=== PATIENT | female | born 1990 | race Caucasian/White ===

== ENCOUNTER 2019-07-25 02:56 | Emergency (ER) | payer MEDICAID ==
[~2019-07-25] VITALS: Ht 152.4 cm; Wt 50.0 kg
[2019-07-25 03:02] VITALS: Ht 152.4 cm; Wt 50.0 kg
[2019-07-25] MEDS ORDERED: CLEOCIN HCL300 MG PO (03:17)
[2019-07-25] MEDS ORDERED: NORCO-7.51 TAB PO (03:17)
[2019-07-25 03:36] VITALS: BP 132/79
== END 2019-07-25 03:36 | disposition home or self-care (01) ==
LOC: D.ER 02:56
DX: K02.9 Dental caries, unspecified (principal); S02.5XXA Fracture of tooth (traumatic), initial encounter for closed fracture; K04.7 Periapical abscess without sinus